=== PATIENT | male | born 1940 | race Hispanic/Latino ===

== ENCOUNTER → 2020-10-10 | Outpatient (CLI) | payer MEDICARE, OTHER ==
[~2020-10-10] MED LIST: LIDOCAINE HCL 2% JELLY 5 ML ONE
== END | disposition home or self-care (01) ==
LOC: WHH 13:00
PROVIDERS: ATTEND Family Medicine
DX: L02.416 Cutaneous abscess of left lower limb (principal); M10.062 Idiopathic gout, left knee; M19.91 Primary osteoarthritis, unspecified site; I10 Essential (primary) hypertension; Z87.891 Personal history of nicotine dependence
CPT/HCPCS: 36415; 84134; 85651; 86140; 87070; A6212; G0463

== ENCOUNTER → 2020-10-19 | Outpatient (CLI) | payer MEDICARE ==
[~2020-10-19] MED LIST changes: +IOHEXOL-350 50ML VIAL IV ONE; -LIDOCAINE HCL 2% JELLY 5 ML ONE
== END | disposition home or self-care (01) ==
LOC: RAH 08:32
PROVIDERS: ATTEND Family Medicine
DX: L02.416 Cutaneous abscess of left lower limb (principal)
CPT/HCPCS: 76080; Q9967

== ENCOUNTER → 2020-10-24 | Outpatient (CLI) | payer MEDICARE ==
[~2020-10-24] MED LIST changes: -IOHEXOL-350 50ML VIAL IV ONE; +LIDOCAINE HCL 2% JELLY 5 ML ONE
== END | disposition home or self-care (01) ==
LOC: WHH 13:00
PROVIDERS: ATTEND Family Medicine
DX: S91.002A Unspecified open wound, left ankle, initial encounter (principal); L02.416 Cutaneous abscess of left lower limb; M10.062 Idiopathic gout, left knee; M19.91 Primary osteoarthritis, unspecified site; I10 Essential (primary) hypertension; Z87.891 Personal history of nicotine dependence; X58.XXXA Exposure to other specified factors, initial encounter; Y93.89 Activity, other specified; Y92.89 Other specified places as the place of occurrence of the external cause; Y99.8 Other external cause status
CPT/HCPCS: 11042; A6213

== ENCOUNTER → 2020-10-31 | Outpatient (CLI) | payer MEDICARE ==
[~2020-10-31] MED LIST changes: +HONEY 1 APPL/ML TUBE TP ONE
== END | disposition home or self-care (01) ==
LOC: WHH 13:00
PROVIDERS: ATTEND Family Medicine
DX: S91.002D Unspecified open wound, left ankle, subsequent encounter (principal); L02.416 Cutaneous abscess of left lower limb; M10.062 Idiopathic gout, left knee; M19.91 Primary osteoarthritis, unspecified site; I10 Essential (primary) hypertension; Z87.891 Personal history of nicotine dependence; X58.XXXD Exposure to other specified factors, subsequent encounter
CPT/HCPCS: 11042; 11102; 87070; 87077 ×3; 87186 ×3; A6212

== ENCOUNTER → 2020-11-07 | Outpatient (CLI) | payer MEDICARE ==
[~2020-11-07] MED LIST changes: -HONEY 1 APPL/ML TUBE TP ONE
[2020-11-07 14:55] LABS: CREATININE 0.9 mg/dL (0.5-1.5); POTASSIUM 4.2 mmol/L (3.5-5.1)
== END | disposition home or self-care (01) ==
LOC: WHH 13:00
PROVIDERS: ATTEND Family Medicine
DX: S91.002D Unspecified open wound, left ankle, subsequent encounter (principal); S81.802D Unspecified open wound, left lower leg, subsequent encounter; L02.416 Cutaneous abscess of left lower limb; M10.062 Idiopathic gout, left knee; M19.91 Primary osteoarthritis, unspecified site; I10 Essential (primary) hypertension; Z87.891 Personal history of nicotine dependence; X58.XXXD Exposure to other specified factors, subsequent encounter
CPT/HCPCS: 11042; 36415; 80048; A4450; A6197

== ENCOUNTER → 2020-11-09 | Outpatient (CLI) | payer MEDICARE | END | disposition home or self-care (01) | LOC: RAH 09:58 | PROVIDERS: ATTEND Family Medicine | DX: S83.242A Other tear of medial meniscus, current injury, left knee, initial encounter (principal); S83.512A Sprain of anterior cruciate ligament of left knee, initial encounter; M25.462 Effusion, left knee; L02.416 Cutaneous abscess of left lower limb; X58.XXXA Exposure to other specified factors, initial encounter; Y93.89 Activity, other specified; Y92.89 Other specified places as the place of occurrence of the external cause; Y99.8 Other external cause status | CPT/HCPCS: 73721 ==

== ENCOUNTER → 2020-11-14 | Outpatient (CLI) | payer MEDICARE | END | disposition home or self-care (01) | LOC: WHH 13:00 | PROVIDERS: ATTEND Family Medicine | DX: S91.002D Unspecified open wound, left ankle, subsequent encounter (principal); S81.802D Unspecified open wound, left lower leg, subsequent encounter; L02.416 Cutaneous abscess of left lower limb; M10.062 Idiopathic gout, left knee; M19.91 Primary osteoarthritis, unspecified site; I10 Essential (primary) hypertension; Z87.891 Personal history of nicotine dependence; X58.XXXD Exposure to other specified factors, subsequent encounter | CPT/HCPCS: 11042; A6197 ==

== ENCOUNTER 2020-11-17 16:43 | Emergency (ER) | payer MEDICARE ==
[2020-11-17 17:23] LABS: BASOPHILS % (AUTO) 0.3 % (0.0-5.0); EOSINOPHILS % (AUTO) 2.2 % (0.0-8.0); HEMATOCRIT 33.3 % (42-54); LYMPHOCYTES % (AUTO) 9.8 % (21.0-51.0); MEAN CORPUSCULAR HEMOGLOBIN 30.6 pg (27.0-33.0); MEAN CORPUSCULAR HGB CONC 35.1 g/dL (32.0-36.0); MEAN CORPUSCULAR VOLUME 87.2 fL (79-99); MONOCYTES % (AUTO) 12.2 % (3.0-13.0); NEUTROPHILS % (AUTO) 75.2 % (40.0-77.0); PLATELET COUNT (AUTO) 338 K/uL (130-400); RED BLOOD CELL COUNT(AUTO) 3.82 MIL/uL (4.50-6.20); WHITE BLOOD COUNT (AUTO) 12.5 K/uL (4.8-10.8)
[2020-11-17 17:35] LABS: INR 1.08 (0.85-1.15); PROTHROMBIN TIME 11.7 SEC (9.6-11.6)
[2020-11-17 17:37] LABS: PARTIAL THROMBOPLASTIN TIME 27.2 SEC (26.3-35.5)
[2020-11-17 17:41] LABS: CREATININE 1.2 mg/dL (0.5-1.5); POTASSIUM 3.7 mmol/L (3.5-5.1)
[2020-11-17 17:45] LABS: ALBUMIN 2.7 g/dL (3.5-5.0); BILIRUBIN,TOTAL 0.4 mg/dL (0.2-1.0); TOTAL PROTEIN, SERUM 7.5 g/dL (6.0-8.3)
== END 2020-11-17 19:47 | disposition home or self-care (01) ==
LOC: EDH 16:43
DX: I73.9 Peripheral vascular disease, unspecified (principal); L97.929 Non-pressure chronic ulcer of unspecified part of left lower leg with unspecified severity
CPT/HCPCS: 36415; 73562; 80053; 85025; 85610; 85730; 87070; 87076; 93925; 93971

== ENCOUNTER → 2020-11-21 | Outpatient (CLI) | payer MEDICARE ==
[~2020-11-21] MED LIST changes: +ACET-3194 PO; +ACET325T51 PO; +AEC81 PO; +ALLO300T2 PO; +AMLO-257 PO; +AMLO-343 PO; +ASCO500T10 PO; +ATOR40TA71 PO; +BALS60OI4 TP; +CEFE2FRO IV; +CLOP75TA14 PO; +COLC0.6T73 PO; +DOCU100C33 PO; +ENOX40DI9 SQ; +ERGO500093 PO; +FAMO20TA8 PO; +LEVO50CA4 PO; +LINE600I2 IV; +LISI20TA24 PO; +MELA3TAB41 PO; +MULT-1367 PO; +[UNRECOGNIZED DRUG - CODE] PO
== END | disposition home or self-care (01) ==
LOC: WHH 13:00
PROVIDERS: ATTEND Family Medicine
DX: S91.002D Unspecified open wound, left ankle, subsequent encounter (principal); S81.802D Unspecified open wound, left lower leg, subsequent encounter; L02.416 Cutaneous abscess of left lower limb; M10.062 Idiopathic gout, left knee; M19.91 Primary osteoarthritis, unspecified site; I10 Essential (primary) hypertension; Z87.891 Personal history of nicotine dependence; X58.XXXD Exposure to other specified factors, subsequent encounter
CPT/HCPCS: 11042; A6197

== ENCOUNTER → 2021-01-09 | Outpatient (CLI) | payer MEDICARE ==
[~2021-01-09] MED LIST changes: -ACET325T51 PO; -AMLO-343 PO; -LIDOCAINE HCL 2% JELLY 5 ML ONE; -[UNRECOGNIZED DRUG - CODE] PO
== END | disposition home or self-care (01) ==
LOC: WHH 13:37
PROVIDERS: ATTEND Family Medicine
DX: L89.520 Pressure ulcer of left ankle, unstageable (principal); L97.321 Non-pressure chronic ulcer of left ankle limited to breakdown of skin; L89.620 Pressure ulcer of left heel, unstageable; L97.421 Non-pressure chronic ulcer of left heel and midfoot limited to breakdown of skin; L89.610 Pressure ulcer of right heel, unstageable; L97.411 Non-pressure chronic ulcer of right heel and midfoot limited to breakdown of skin; L89.890 Pressure ulcer of other site, unstageable; L97.521 Non-pressure chronic ulcer of other part of left foot limited to breakdown of skin; L97.821 Non-pressure chronic ulcer of other part of left lower leg limited to breakdown of skin; S81.802A Unspecified open wound, left lower leg, initial encounter; E11.51 Type 2 diabetes mellitus with diabetic peripheral angiopathy without gangrene; I11.0 Hypertensive heart disease with heart failure; M19.91 Primary osteoarthritis, unspecified site; M10.062 Idiopathic gout, left knee; L02.416 Cutaneous abscess of left lower limb; E78.5 Hyperlipidemia, unspecified; F03.90 Unspecified dementia, unspecified severity, without behavioral disturbance, psychotic disturbance, mood disturbance, and anxiety; M10.00 Idiopathic gout, unspecified site; Z87.891 Personal history of nicotine dependence; I50.9 Heart failure, unspecified; Z79.82 Long term (current) use of aspirin; Z79.899 Other long term (current) drug therapy; X58.XXXA Exposure to other specified factors, initial encounter; Y93.89 Activity, other specified; Y92.89 Other specified places as the place of occurrence of the external cause; Y99.8 Other external cause status
CPT/HCPCS: 11042; 11045; 82948; 87070; 87077; 87186; A6207; A6213